=== PATIENT | male | born 1960 | race Caucasian/White ===

== ENCOUNTER 2020-01-29 07:48 | Day surgery (SDC) | payer OTHER ==
[~2020-01-29 07:48] MED LIST: LACTATED RINGERS 1,000 ML IV SCH
[2020-01-29 08:15] VITALS: RESP 16; TEMP 96.7
[2020-01-29] MEDS ORDERED: LIDOCAINE 1% INJ 10MG/ML (20 ML MDV) ONE (08:48)
[2020-01-29] MEDS ORDERED: PROPOFOL 10 MG/ML 20 ML VIAL IV ONE (08:48)
--- NOTE | 2020-01-29 09:09 | P.PCN ---
Date of Procedure: 01/29/20 Description of Procedure: BRIEF HISTORY: Patient is a 60-year-old male presenting for outpatient esophagogastroduodenoscopy for evaluation of GERD with esophagitis. Patient reports symptoms of abdominal pain, gas, bloating especially after fatty meals. Was started on PPI therapy which he did not feel helped with symptoms. PROCEDURE PERFORMED: Esophagogastroduodenoscopy with biopsy. PREOPERATIVE DIAGNOSIS: GERD with esophagitis. ESTIMATED BLOOD LOSS: Minimal. IV sedation per anesthesia. PROCEDURE: After informed consent was obtained, the patient was brought into the endoscopy unit. IV sedation was administered by Anesthesia under continuous monitoring. Initially the Olympus GIF-190 video endoscope was inserted into the mouth. Esophagus intubated without any difficulty. It was gradually advanced into the stomach and duodenum and carefully examined. The bulb and the second part of the duodenum appeared normal, with biopsies taken to rule out celiac sprue. The scope at this time was withdrawn to the stomach, adequately insufflated with air, and upon careful examination, mucosa of the antrum, body, cardia and the fundus appeared normal, except for some mild punctate erythema in the antrum and body suggestive of mild gastritis with biopsies taken. The scope was then withdrawn into the esophagus. The GE junction was located at 42 cm from the incisors and appeared normal with biopsies taken to rule out reflux esophagitis. The esophagus appeared normal. There were no erosions or ulcerations seen and the patient tolerated the procedure well. IMPRESSION: 1. Mild gastritis antrum and body, biopsied. 2. Biopsies of the duodenum and GE junction. 3. No other findings to explain symptoms of abdominal pain, gas, bloating, distention. RECOMMENDATIONS: The findings of this examination were discussed with the patient and his . Okay to resume diet. Okay to resume medications. Await pathology from biopsies. Follow up with primary care physician as previously scheduled.
[2020-01-29 09:32] VITALS: BP 119/82; PULSE 75
== END 2020-01-29 09:49 | disposition home or self-care (01) ==
LOC: ORWHC2ENDO 07:48
PROVIDERS: ATTEND Internal Medicine
DX: K21.0 Gastro-esophageal reflux disease with esophagitis (principal); K29.50 Unspecified chronic gastritis without bleeding; K31.7 Polyp of stomach and duodenum; Z88.2 Allergy status to sulfonamides; Z79.899 Other long term (current) drug therapy; Z79.82 Long term (current) use of aspirin; Z87.438 Personal history of other diseases of male genital organs; Z98.890 Other specified postprocedural states
CPT/HCPCS: 88305; 43239; J2001; J2704